=== PATIENT | female | born 1950 | race Caucasian/White ===

== ENCOUNTER → 2018-10-24 | Outpatient (CLI) | payer MEDICARE ==
[~2018-10-24] MED LIST: ALEN70TA6 PO; ATOR10TA9 PO; VENL150T PO
== END | disposition home or self-care (01) ==
LOC: STAR 10:29
PROVIDERS: ATTEND Surgery
DX: Z01.818 Encounter for other preprocedural examination (principal)
CPT/HCPCS: 93005

== ENCOUNTER 2018-10-29 12:42 | Day surgery (SDC) | payer MEDICARE ==
[~2018-10-29] VITALS: Ht 149.9 cm; Wt 68.5 kg
[2018-10-29] MEDS ORDERED: LACTATED RINGERS 1,000 ML IV SCH (13:09)
[2018-10-29 13:13] VITALS: BP 143/95
[2018-10-29] MEDS ORDERED: FENTANYL PF 250 MCG/5ML ONE (14:12)
[2018-10-29] MEDS ORDERED: ACETAMINOPHEN 325 MG TABLET PO PRN (14:30)
[2018-10-29] MEDS ORDERED: LORazepam 2 MG/ML, 1ML IVPush PRN (14:30)
[2018-10-29] MEDS ORDERED: MEPERIDINE/PF 25MG/0.5ML IVPush PRN (14:30)
[2018-10-29] MEDS ORDERED: ONDANSETRON ODT 8 MG PO PRN (14:30)
[2018-10-29] MEDS ORDERED: OXYcodone 5 MG/5 ML ORAL.SOL UDC PO PRN (14:30)
[2018-10-29] MEDS ORDERED: ONDANSETRON 2MG/ML, 2ML IV PRN (14:30)
[2018-10-29] MEDS ORDERED: PROMETHAZINE 25 MG/ML, 1ML IV PRN (14:30)
[2018-10-29] MEDS ORDERED: HYDROmorphone 2 MG/ML, 1ML IVPush PRN (14:30)
[2018-10-29] MEDS ORDERED: BUPIVACAINE/PF-EPI 0.5% 1:200K ONE (14:43)
[2018-10-29] MEDS ORDERED: ONDANSETRON 2MG/ML, 2ML ONE (14:48)
[2018-10-29] MEDS ORDERED: DEXAMETHASONE 4 MG/ML, 1ML ONE (14:48)
[2018-10-29] MEDS ORDERED: ROCURONIUM 10 MG/ML,10ML ONE (14:48)
[2018-10-29] MEDS ORDERED: PROPOFOL 10 MG/ML, 20ML ONE (14:48)
[2018-10-29] MEDS ORDERED: EPHEDRINE 50 MG/ML, 1ML ONE (14:48)
[2018-10-29] MEDS ORDERED: LABETALOL 5MG/ML, 20ML ONE (14:48)
[2018-10-29] MEDS ORDERED: CEFOTETAN 2 GM ONE (14:48)
[2018-10-29] MEDS ORDERED: SUCCINYLCHOLINE 20 MG/ML, 10ML ONE (14:48)
[2018-10-29] MEDS ORDERED: SUGAMMADEX 200 MG/2 ML IVPush ONE (15:24)
[2018-10-29] MEDS ORDERED: PROMETHAZINE 25 MG/ML, 1ML ONE (15:38)
[2018-10-29] MEDS ORDERED: FENTANYL PF 100 MCG/2ML ONE (15:38)
[2018-10-29] MEDS ORDERED: OXYcodone 5 MG/5 ML ORAL.SOL UDC ONE (15:39)
[2018-10-29] MEDS: FENTANYL PF 100 MCG/2ML IV PRN ×2 (15:42→16:08)
[2018-10-29] MEDS ORDERED: KETOROLAC 30 MG/1 ML ONE (15:43)
[2018-10-29] MEDS ORDERED: KETOROLAC 30 MG/1 ML IVPush ONE (16:00)
[2018-10-29] MEDS ORDERED: hydrALAzine 20 MG/ML, 1ML ONE (16:10)
[2018-10-29] MEDS ORDERED: hydrALAzine 20 MG/ML, 1ML IV PRN (16:30)
[2018-10-29] MEDS ORDERED: LABETALOL 5MG/ML, 20ML IV PRN (16:30)
== END 2018-10-29 18:15 | disposition home or self-care (01) ==
LOC: OUT 12:42
PROVIDERS: ATTEND Surgery
DX: K80.20 Calculus of gallbladder without cholecystitis without obstruction (principal); F41.9 Anxiety disorder, unspecified; E78.5 Hyperlipidemia, unspecified; Z87.39 Personal history of other diseases of the musculoskeletal system and connective tissue; Z98.890 Other specified postprocedural states; Z72.89 Other problems related to lifestyle; Z87.891 Personal history of nicotine dependence
CPT/HCPCS: 47562; 88304; J0330; J0360; J1100; J1885; J2405; J2550; J2704; J3010; J3490; J7120